=== PATIENT | male | born 1990 | race Caucasian/White ===

== ENCOUNTER 2018-08-03 23:50 | Emergency (ER) | payer MEDICAID ==
[~2018-08-03] VITALS: Ht 170.2 cm; Wt 74.8 kg
[2018-08-04 04:06] VITALS: BP 100/52
== END 2018-08-04 04:13 | disposition home or self-care (01) ==
LOC: ER 23:56
DX: L05.91 Pilonidal cyst without abscess (principal); F17.210 Nicotine dependence, cigarettes, uncomplicated; F12.10 Cannabis abuse, uncomplicated